=== PATIENT | male | born 2000 | race Hispanic/Latino ===

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

== ENCOUNTER 2020-11-19 22:05 | Emergency (ER) | payer OTHER, SELFPAY ==
[2020-11-19] MEDS ORDERED: AMOX TR/K CLAV 400MG CHEW TAB PO ONE (23:44)
--- NOTE | 2020-11-19 23:51 | ER ---
Nurse's Notes [facility] Name: Roman Hawkins Age: 20 yrs Sex: Male : 2000 Arrival Date: 11/19/2020 Time: 22:06 Bed 18 Private MD: Diagnosis: Acute tonsillitis Presentation: 11/19 22:17 Chief complaint: Patient states: sore throat started yesterday. Tonsils appear to be dm5 red and swollen. Coronavirus screen: Client denies travel out of the [place] in the last 14 days. shaking with chills, sore throat. Ebola Screen: Patient negative for fever greater than or equal to 101.5 degrees Fahrenheit, and additional compatible Ebola Virus Disease symptoms Patient denies exposure to infectious person. Patient denies travel to an Ebola-affected area in the 21 days before illness onset. No symptoms or risks identified at this time. Initial Sepsis Screen: Does the patient meet any 2 criteria? HR > 90 bpm. No. Patient's initial sepsis screen is negative. Does the patient have a suspected source of infection? Yes: Other: possible strep throat. Risk Assessment: Do you want to hurt yourself or someone else? Patient reports no desire to harm self or others. Onset of symptoms was November 18, 2020. 22:17 Method Of Arrival: Ambulatory dm5 22:17 Acuity: LEE ANN 3 dm5 Historical: - Allergies: 22:20 No Known Allergies; dm5 - Home Meds: 22:20 None [Active]; dm5 - PMHx: 22:20 None; dm5 - PSHx: 22:20 None; dm5 - Immunization history:: Adult Immunizations unknown. - Social history:: Patient/guardian denies using alcohol, Smoking status: unknown. Screenin:35 Abuse screen: Denies threats or abuse. Denies injuries from another. Nutritional rv screening: No deficits noted. Tuberculosis screening: No symptoms or risk factors identified. Fall Risk None identified. Assessment: 23:34 General: Appears comfortable, Behavior is calm, cooperative. Pain: Complains of pain in rv sore throat. Neuro: Level of Consciousness is awake, alert, obeys commands, Oriented to person, place, time, situation. Cardiovascular: Patient's skin is warm and dry. Respiratory: Airway is patent Respiratory effort is even, unlabored, Breath sounds are clear bilaterally. EENT: Throat is reddened. Derm: Skin is intact. Vital Signs: 22:17 BP 139 / 84; Pulse 113; Resp 18; Temp 99.2; Pulse Ox 99% on R/A; Weight 88.45 kg (R); dm5 Height 5 ft. 3 in. (160.02 cm); Pain 7/10; 11/20 00:19 BP 128 / 86; Pulse 96; Resp 16; Temp 98.5; Pulse Ox 99% on R/A; rv 11/19 22:17 Body Mass Index 34.54 (88.45 kg, 160.02 cm) 5 ED Course: 11/19 22:06 Patient arrived in ED. am2 22:19 Triage completed. dm5 23:13 Thierno Ellington RN is Primary Nurse. rv 23:15 Chaz Claros MD is Attending Physician. ma2 23:34 Arm band placed on. rv 23:36 Patient has correct armband on for positive identification. Pulse ox on. NIBP on. rv 23:36 No provider procedures requiring assistance completed. Patient did not have IV access rv during this emergency room visit. Administered Medications: 23:33 CANCELLED (Duplicate Order): Augmentin Suspension (400 mg/5 mL) 10 ml PO once rv 23:34 Drug: Augmentin Chewable Tablet 800 mg Route: PO; rv 11/20 00:19 Follow up: Response: No adverse reaction rv Outcome: 11/19 23:36 Discharged to home ambulatory. rv Condition: good 23:50 Discharge ordered by . nj2 11/20 00:00 Discharge instructions given to patient, Instructed on discharge instructions, follow rv up and referral plans. medication usage, Demonstrated understanding of instructions, follow-up care, medications, Prescriptions given X 1. 00:12 Patient left the ED. rv Signatures: Marie Ugarte, RN RN dm5 Jeannie Blair 2 Chaz Claros MD MD [facility] Thierno Ellington RN RN rv
--- NOTE | 2020-11-19 23:51 | EDPHYS ---
Physician Documentation [facility] Name: Roman Hawkins Age: 20 yrs Sex: Male : 2000 Arrival Date: 11/19/2020 Time: 22:06 Bed 18 Private MD: ED Physician Chaz Claros HPI: 11/19 23:48 This 20 yrs old Male presents to ER via Ambulatory with complaints of Sore ma2 Throat, Difficulty Swallowing, chills. 23:48 The patient presents with sore throat. Onset: The symptoms/episode began/occurred ma2 gradually, 2 day(s) ago. Severity of symptoms: At their worst the symptoms were mild, in the emergency department the symptoms are unchanged. Associated signs and symptoms: Pertinent negatives chills, earache, headache, nausea. The patient has not experienced similar symptoms in the past. Historical: - Allergies: 22:20 No Known Allergies; dm5 - Home Meds: 22:20 None [Active]; dm5 - PMHx: 22:20 None; dm5 - PSHx: 22:20 None; dm5 - Immunization history:: Adult Immunizations unknown. - Social history:: Patient/guardian denies using alcohol, Smoking status: unknown. ROS: 23:48 Constitutional: Negative for fever, chills, and weight loss. ma2 23:48 All other systems are negative. 23:48 Eyes: Negative for injury, pain, redness, and discharge, ENT: Negative for injury, ma2 pain, and discharge, Neck: Negative for injury, pain, and swelling. Exam: 23:48 Constitutional: This is a well developed, well nourished patient who is awake, alert, ma2 and in no acute distress. Head/Face: Normocephalic, atraumatic. 23:48 Eyes: Pupils equal round and reactive to light, extra-ocular motions intact. Lids and ma2 lashes normal. Conjunctiva and sclera are non-icteric and not injected. Cornea within normal limits. Periorbital areas with no swelling, redness, or edema. ENT: has bilateral tonsellitits.. Nares patent. No nasal discharge, no septal abnormalities noted. Tympanic membranes are normal and external auditory canals are clear. Oropharynx with no redness, swelling, or masses, exudates, or evidence of obstruction, uvula midline. Mucous membranes moist. Neck: Trachea midline, no thyromegaly or masses palpated, and no cervical lymphadenopathy. Supple, full range of motion without nuchal rigidity, or vertebral point tenderness. No Meningismus. Chest/axilla: Normal chest wall appearance and motion. Nontender with no deformity. No lesions are appreciated. Back: No spinal tenderness. No costovertebral tenderness. Full range of motion. Skin: Warm, dry with normal turgor. Normal color with no rashes, no lesions, and no evidence of cellulitis. MS/ Extremity: Pulses equal, no cyanosis. Neurovascular intact. Full, normal range of motion. Neuro: Awake and alert, GCS 15, oriented to person, place, time, and situation. Cranial nerves II-XII grossly intact. Motor strength 5/5 in all extremities. Sensory grossly intact. Cerebellar exam normal. Normal gait. Vital Signs: 22:17 BP 139 / 84; Pulse 113; Resp 18; Temp 99.2; Pulse Ox 99% on R/A; Weight 88.45 kg (R); dm5 Height 5 ft. 3 in. (160.02 cm); Pain 7/10; 11/20 00:19 BP 128 / 86; Pulse 96; Resp 16; Temp 98.5; Pulse Ox 99% on R/A; rv 11/19 22:17 Body Mass Index 34.54 (88.45 kg, 160.02 cm) dm5 MDM: 11/19 23:15 Patient medically screened. ma2 23:48 Differential diagnosis: gastroesophageal reflux disease, tonsillitis, upper respiratory ma2 infection, viral syndrome. Data reviewed: vital signs, nurses notes. Counseling: I had a detailed discussion with the patient and/or guardian regarding: the historical points, exam findings, and any diagnostic results supporting the discharge/admit diagnosis, the presence of at least one elevated blood pressure reading (>120/80) during this emergency department visit, the need for outpatient follow up. Response to treatment: the patient's symptoms have markedly improved after treatment. Administered Medications: 23:33 CANCELLED (Duplicate Order): Augmentin Suspension (400 mg/5 mL) 10 ml PO once rv 23:34 Drug: Augmentin Chewable Tablet 800 mg Route: PO; rv 11/20 00:19 Follow up: Response: No adverse reaction rv Disposition: 11/19/20 23:50 Discharged to Home. Impression: Acute tonsillitis. - Condition is Stable. - Discharge Instructions: Tonsillitis. - Prescriptions for Augmentin ES- 600 600-42.9 mg/5 mL Oral Suspension for Reconstitution - take 7.2 milliliter by ORAL route every 12 hours for 10 days Max = 875mg/dose; 150 milliliter. - Medication Reconciliation Form, Thank You Letter, Antibiotic Education, Prescription Opioid Use form. - Follow up: Private Physician; When: Tomorrow; Reason: Continuance of care. Signatures: Marie Ugarte, RN RN dm5 Chaz Claros MD MD ma2 Thierno Ellington RN RN rv Corrections: (The following items were deleted from the chart) 11/19 23:33 23:27 Augmentin Suspension (400 mg/5 mL) 10 ml PO once ordered. ma2 rv 11/20 00:12 11/19 23:50 11/19/2020 23:50 Discharged to Home. Impression: Acute tonsillitis. rv Condition is Stable. Prescriptions for Augmentin ES-600 600-42.9 mg/5 mL Oral Suspension for Reconstitution - take 7.2 milliliter by ORAL route every 12 hours for 10 days Max = 875mg/dose; 150 milliliter. and Forms are Medication Reconciliation Form, Thank You Letter, Antibiotic Education, Prescription Opioid Use. Follow up: Private Physician; When: Tomorrow; Reason: Continuance of care. ma2
[2020-11-21 03:49] VITALS: BP 139/84; TEMP 99.2; O2SAT 99
== END 2020-11-20 00:12 | disposition home or self-care (01) ==
LOC: ER 22:05
DX: J03.90 Acute tonsillitis, unspecified (principal)
CPT/HCPCS: 99283

== ENCOUNTER 2020-12-14 00:47 | Emergency (ER) | payer SELFPAY ==
--- NOTE | 2020-12-14 01:35 | ER ---
Nurse's Notes [facility] Name: Roman Hawkins Age: 20 yrs Sex: Male : 2000 Arrival Date: 12/14/2020 Time: 00:48 Bed 13 Private MD: Diagnosis: Dysuria Presentation: 12/14 01:23 Chief complaint: Patient states: i have urinary frequency since 2 weeks ago and I am sg concern about STD. Coronavirus screen: Client denies travel out of the [place] in the last 14 days. At this time, the client does not indicate any symptoms associated with coronavirus-19. Ebola Screen: No symptoms or risks identified at this time. Initial Sepsis Screen: Does the patient meet any 2 criteria? No. Patient's initial sepsis screen is negative. Does the patient have a suspected source of infection? No. Patient's initial sepsis screen is negative. Risk Assessment: Do you want to hurt yourself or someone else? Patient reports no desire to harm self or others. Onset of symptoms was November 2020. 01:23 Method Of Arrival: Ambulatory sg 01:23 Acuity: LEE ANN 4 sg Triage Assessment: :26 General: Appears in no apparent distress. comfortable, Behavior is calm, cooperative. sg Pain: Denies pain. EENT: No deficits noted. Neuro: Level of Consciousness is awake, alert, obeys commands, Oriented to person, place, time, situation. Cardiovascular: Capillary refill < 3 seconds Patient's skin is warm and dry. Respiratory: Airway is patent Respiratory effort is even, unlabored, Respiratory pattern is regular, symmetrical. GI: No signs and/or symptoms were reported involving the gastrointestinal system. : Reports urinary frequency. Derm: Skin is intact, is healthy with good turgor, Skin is pink, warm \T\ dry. normal. Musculoskeletal: Circulation, motion, and sensation intact. Capillary refill < 3 seconds. Historical: - Allergies: : No Known Allergies; sg - Home Meds: None [Active]; sg - PMHx: : None; sg - PSHx: : None; sg - Immunization history:: Flu vaccine is not up to date. - Social history:: Smoking status: Patient denies any tobacco usage or history of. Patient/guardian denies using alcohol, street drugs, IV drugs. - Family history:: not pertinent. Screenin:27 Abuse screen: Denies threats or abuse. Denies injuries from another. Nutritional sg screening: No deficits noted. Tuberculosis screening: No symptoms or risk factors identified. Fall Risk No IV (0 pts). Assessment: : General: see triage note. sg Vital Signs: 01:23 BP 135 / 91; Pulse 89; Resp 18; Temp 98.3; Pulse Ox 100% on R/A; Weight 88.45 kg; sg Height 5 ft. 3 in. (160.02 cm); Pain 0/10; 01:23 Body Mass Index 34.54 (88.45 kg, 160.02 cm) sg ED Course: 00:48 Patient arrived in ED. ag3 01:18 Jeramie Gracia, DAISHA is Primary Nurse. mg2 01:21 Chano Rock MD is Attending Physician. [facility] 01:25 Triage completed. sg 01:26 Arm band placed on. sg 01:27 Patient has correct armband on for positive identification. sg 01:27 No provider procedures requiring assistance completed. Patient did not have IV access sg during this emergency room visit. Administered Medications: 01:52 Drug: Zithromax 1 grams Route: PO; mg2 01:53 Follow up: Response: No adverse reaction; Medication administered at discharge. mg2 01:52 Drug: Rocephin (cefTRIAXone) 500 mg Route: IM; Site: right gluteus; mg2 01:52 Follow up: Response: No adverse reaction; Medication administered at discharge. mg2 01:52 Drug: Doxycycline 200 mg Route: PO; mg2 01:53 Follow up: Response: No adverse reaction; Medication administered at discharge. mg2 Outcome: 01:35 Discharge ordered by . brooks 01:53 Discharged to home ambulatory. mg2 01:53 Condition: stable 01:53 Discharge instructions given to patient, Instructed on discharge instructions, follow up and referral plans. Demonstrated understanding of instructions, follow-up care, medications, Prescriptions given X 1. 01:53 Patient left the ED. mg2 Signatures: Aly Ayala, RN Chano Baez MD MD cha Gardose, Michele, RN RN mg2 Haydee Og ag3
--- NOTE | 2020-12-14 01:35 | EDPHYS ---
Physician Documentation [facility] Name: Roman Hawkins Age: 20 yrs Sex: Male : 2000 Arrival Date: 12/14/2020 Time: 00:48 Bed 13 Private MD: ED Physician Chano Rock HPI: 12/14 01:31 This 20 yrs old Male presents to ER via Ambulatory with complaints of Urinary brooks Frequency. 01:31 The patient presents with urinary symptoms, dysuria. Onset: The symptoms/episode brooks began/occurred 2 day(s) ago. Modifying factors: The symptoms are alleviated by nothing, the symptoms are aggravated by urinating. Associated signs and symptoms: The patient has no apparent associated signs or symptoms. Severity of symptoms: At their worst the symptoms were mild, moderate, in the emergency department the symptoms are unchanged. The patient has not experienced similar symptoms in the past. Historical: - Allergies: : No Known Allergies; sg - Home Meds: : None [Active]; sg - PMHx: : None; sg - PSHx: :26 None; sg - Immunization history:: Flu vaccine is not up to date. - Social history:: Smoking status: Patient denies any tobacco usage or history of. Patient/guardian denies using alcohol, street drugs, IV drugs. - Family history:: not pertinent. ROS: 01:31 Constitutional: Negative for fever, chills, and weight loss, Eyes: Negative for injury, brooks pain, redness, and discharge, ENT: Negative for injury, pain, and discharge, Neck: Negative for injury, pain, and swelling, Cardiovascular: Negative for chest pain, palpitations, and edema, Respiratory: Negative for shortness of breath, cough, wheezing, and pleuritic chest pain, Abdomen/GI: Negative for abdominal pain, nausea, vomiting, diarrhea, and constipation, Back: Negative for injury and pain, MS/Extremity: Negative for injury and deformity, Skin: Negative for injury, rash, and discoloration, Neuro: Negative for headache, weakness, numbness, tingling, and seizure, Psych: Negative for depression, anxiety, suicide ideation, homicidal ideation, and hallucinations, Allergy/Immunology: Negative for hives, rash, and allergies, Endocrine: Negative for neck swelling, polydipsia, polyuria, polyphagia, and marked weight changes, Hematologic/Lymphatic: Negative for swollen nodes, abnormal bleeding, and unusual bruising. :31 : Positive for urinary symptoms, small amounts. Exam: :31 Constitutional: This is a well developed, well nourished patient who is awake, alert, brooks and in no acute distress. Head/Face: Normocephalic, atraumatic. Eyes: Pupils equal round and reactive to light, extra-ocular motions intact. Lids and lashes normal. Conjunctiva and sclera are non-icteric and not injected. Cornea within normal limits. Periorbital areas with no swelling, redness, or edema. ENT: Nares patent. No nasal discharge, no septal abnormalities noted. Tympanic membranes are normal and external auditory canals are clear. Oropharynx with no redness, swelling, or masses, exudates, or evidence of obstruction, uvula midline. Mucous membranes moist. Neck: Trachea midline, no thyromegaly or masses palpated, and no cervical lymphadenopathy. Supple, full range of motion without nuchal rigidity, or vertebral point tenderness. No Meningismus. Chest/axilla: Normal chest wall appearance and motion. Nontender with no deformity. No lesions are appreciated. Cardiovascular: Regular rate and rhythm with a normal S1 and S2. No gallops, murmurs, or rubs. Normal PMI, no JVD. No pulse deficits. Respiratory: Lungs have equal breath sounds bilaterally, clear to auscultation and percussion. No rales, rhonchi or wheezes noted. No increased work of breathing, no retractions or nasal flaring. Abdomen/GI: Soft, non-tender, with normal bowel sounds. No distension or tympany. No guarding or rebound. No evidence of tenderness throughout. Back: No spinal tenderness. No costovertebral tenderness. Full range of motion. Skin: Warm, dry with normal turgor. Normal color with no rashes, no lesions, and no evidence of cellulitis. MS/ Extremity: Pulses equal, no cyanosis. Neurovascular intact. Full, normal range of motion. Neuro: Awake and alert, GCS 15, oriented to person, place, time, and situation. Cranial nerves II-XII grossly intact. Motor strength 5/5 in all extremities. Sensory grossly intact. Cerebellar exam normal. Normal gait. Psych: Awake, alert, with orientation to person, place and time. Behavior, mood, and affect are within normal limits. 01:31 : CVA tenderness, is absent, Male external genitalia: normal, Bladder: is normal, Sexual behavior: the patient is sexually active, and reports a single partner. Vital Signs: 01: BP 135 / 91; Pulse 89; Resp 18; Temp 98.3; Pulse Ox 100% on R/A; Weight 88.45 kg; sg Height 5 ft. 3 in. (160.02 cm); Pain 0/10; :23 Body Mass Index 34.54 (88.45 kg, 160.02 cm) sg MDM: 01:22 Patient medically screened. [facility] 01:31 Differential diagnosis: UTI, urinary retention, prostatitis, urethritis. Data reviewed: [facility] vital signs, nurses notes, lab test result(s), urinalysis. 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 Test interpretation: by ED physician or midlevel provider:. Counseling: I had a detailed discussion with the patient and/or guardian regarding: the historical points, exam findings, and any diagnostic results supporting the discharge/admit diagnosis, lab results. 12/14 01:30 Order name: Urine Culture [facility] 12/14 01:38 Order name: Urine Dipstick--Ancillary (enter results) tt3 12/14 01:30 Order name: Urine Dipstick-Ancillary (obtain specimen); Complete Time: 01:35 [facility] Administered Medications: 01:52 Drug: Zithromax 1 grams Route: PO; mg2 01:53 Follow up: Response: No adverse reaction; Medication administered at discharge. mg2 01:52 Drug: Rocephin (cefTRIAXone) 500 mg Route: IM; Site: right gluteus; mg2 01:52 Follow up: Response: No adverse reaction; Medication administered at discharge. mg2 01:52 Drug: Doxycycline 200 mg Route: PO; mg2 01:53 Follow up: Response: No adverse reaction; Medication administered at discharge. mg2 Disposition: 12/14/20 01:35 Discharged to Home. Impression: Dysuria. - Condition is Stable. - Discharge Instructions: Dysuria, Sexually Transmitted Disease, [id number]. - Prescriptions for Doxycycline Hyclate 100 mg Oral Tablet - take 1 tablet by ORAL route every 12 hours; 20 tablet. - Medication Reconciliation Form, Thank You Letter, Antibiotic Education, Prescription Opioid Use form. - Follow up: Private Physician; When: 2 - 3 days; Reason: Recheck today's complaints, Re-evaluation by your physician. - Problem is new. - Symptoms have improved. Signatures: Dispatcher [employer] EDMS Aly Ayala RN RN Chano Roman MD MD cha Gardose, Michele, RN RN mg2 Corrections: (The following items were deleted from the chart) 01:53 01:35 12/14/2020 01:35 Discharged to Home. Impression: Dysuria. Condition is Stable. mg2 Forms are Medication Reconciliation Form, Thank You Letter, Antibiotic Education, Prescription Opioid Use. Follow up: Private Physician; When: 2 - 3 days; Reason: Recheck today's complaints, Re-evaluation by your physician. Problem is new. Symptoms have improved. brooks
[2020-12-14 01:43] LABS: Urine Blood NEGATIVE (NEG); Urine Glucose NEGATIVE (NEG); Urine Protein NEGATIVE (NEG); Urine Specific Gravity 1.025 (1.005-1.030)
[2020-12-14] MEDS ORDERED: AZITHROMYCIN 250 MG TAB ONE (01:53)
[2020-12-14] MEDS ORDERED: DOXYCYCLINE 100 MG CAP PO ONE (01:53)
[2020-12-14] MEDS ORDERED: WATER FOR INJ,STERILE 10 ML ONE (01:53)
[2020-12-14] MEDS ORDERED: CEFTRIAXONE 1000 MG/VIAL ONE (01:53)
[2020-12-14] MEDS ORDERED: CEFTRIAXONE 500 MG/VIAL ONE (01:55)
[2020-12-14 01:58] VITALS: BP 135/91; TEMP 98.3; O2SAT 100
== END 2020-12-14 01:53 | disposition home or self-care (01) ==
LOC: ER 00:47
DX: R30.0 Dysuria (principal)
CPT/HCPCS: 81003; 87086; 87088; 96372; 99283; J0696

== ENCOUNTER 2021-11-12 15:52 | Emergency (ER) | payer OTHER, SELFPAY ==
[2021-11-12] MEDS ORDERED: PEN G BENZ LA 1.2MU/2ML SYRINGE IM ONE (17:46)
[2021-11-12] MEDS ORDERED: dexAMETHasone 10 MG/ML VIAL ONE (17:47)
--- NOTE | 2021-11-12 17:49 | ER ---
Nurse's Notes [facility] Name: Roman Hawkins Age: 21 yrs Sex: Male : 2000 Arrival Date: 11/12/2021 Time: 15:55 Bed 11 Private MD: Diagnosis: Acute tonsillitis, unspecified Presentation: 11/12 16:11 Chief complaint: Patient states: throat pain x 2 days, no fever. Coronavirus screen: [facility] Vaccine status: Patient reports receiving the 2nd dose of the covid vaccine. Ebola Screen: No symptoms or risks identified at this time. Initial Sepsis Screen: Does the patient meet any 2 criteria? No. Patient's initial sepsis screen is negative. Does the patient have a suspected source of infection? No. Patient's initial sepsis screen is negative. Risk Assessment: Do you want to hurt yourself or someone else? Patient reports no desire to harm self or others. Onset of symptoms was November 10, 2021. 16:11 Method Of Arrival: Ambulatory [facility] 16:11 Acuity: LEE ANN 4 [facility] Triage Assessment: 16:15 General: Appears in no apparent distress. uncomfortable, Behavior is calm, cooperative, [facility] appropriate for age. Pain: Complains of pain in left aspect of posterior pharynx and right aspect of posterior pharynx Pain does not radiate. Quality of pain is described as dull, sharp, Pain began 2-3 days ago. Is continuous, Aggravated by eating, drinking. EENT: Throat has patchy exudate has enlarged tonsils bilaterally. Historical: - Allergies: 16:14 No Known Allergies; [facility] - Home Meds: 16:14 None [Active]; [facility] - PMHx: 16:14 None; [facility] - Immunization history:: Adult Immunizations up to date. - Social history:: Smoking status: Patient denies any tobacco usage or history of. Screenin:42 Abuse screen: Denies threats or abuse. Denies injuries from another. Nutritional ww screening: No deficits noted. Tuberculosis screening: No symptoms or risk factors identified. Fall Risk None identified. Assessment: 17:42 General: Appears in no apparent distress. well developed, well nourished, Behavior is ww calm, cooperative, appropriate for age. Pain: Complains of pain in mouth. Neuro: Level of Consciousness is awake, alert, obeys commands, Oriented to person, place, time, situation, Moves all extremities. Speech is normal. Cardiovascular: No deficits noted. Denies chest pain, shortness of breath, Capillary refill < 3 seconds. Respiratory: No deficits noted. Airway is patent Trachea Respiratory effort is even, unlabored, Respiratory pattern is regular, symmetrical. GI: No deficits noted. No signs and/or symptoms were reported involving the gastrointestinal system. : No deficits noted. No signs and/or symptoms were reported regarding the genitourinary system. EENT: Throat is reddened has enlarged tonsils. Derm: No deficits noted. No signs and/or symptoms reported regarding the dermatologic system. Musculoskeletal: No deficits noted. No signs and/or symptoms reported regarding the musculoskeletal system. Circulation, motion, and sensation intact. Capillary refill < 3 seconds, Range of motion: intact in all extremities. Vital Signs: 16:11 BP 149 / 76; Pulse 111; Resp 18; Temp 98.9(T); Pulse Ox 98% ; Weight 90.72 kg; Height 5 6 ft. 4 in. (162.56 cm); Pain 9/10; 17:55 BP 131 / 75; Pulse 108; Resp 20; Pulse Ox 98% on R/A; ww 16:11 Body Mass Index 34.33 (90.72 kg, 162.56 cm) [facility] Pat Coma Score: 17:42 Eye Response: spontaneous(4). Verbal Response: oriented(5). Motor Response: obeys commands(6). Total: 15. ED Course: 15:55 Patient arrived in ED. am2 16:14 Triage completed. [facility] 16:16 Arm band placed on right wrist. [facility] 17:24 Steve Colindres PA is PHCP. [facility] 17:25 Mac Davis MD is Attending Physician. [facility] 17:41 Susanna Ramos, RN is Primary Nurse. ww 17:42 Patient has correct armband on for positive identification. Bed in low position. Call ww light in reach. Side rails up X 1. 17:42 Strep Sent. 17:48 Jelly Hernandez MD is Referral Physician. [facility] 18:28 Patient did not have IV access during this emergency room visit. 18:28 No provider procedures requiring assistance completed. Administered Medications: 17:54 Drug: Bicillin L-A (penicillin G Benzathine) 1.2 million units Route: IM; Site: right ww gluteus; 17:54 Drug: Decadron (dexamethasone) 10 mg Route: IM; Site: right gluteus; ww Outcome: 17:48 Discharge ordered by MD. beverly 18:27 Discharged to home ambulatory. ww 18:27 Condition: stable 18:27 Discharge instructions given to patient, Instructed on discharge instructions, follow up and referral plans. safety practices, Demonstrated understanding of instructions, follow-up care. 18:28 Patient left the ED. ww Signatures: Steve Colindres PA PA jmm Moreno, Amanda am2 Hastedt, Jennifer RN RN jh6 Susanna Ramos RN RN ww
--- NOTE | 2021-11-12 17:49 | EDPHYS ---
Physician Documentation [facility] Name: Roman Hawkins Age: 21 yrs Sex: Male : 2000 Arrival Date: 11/12/2021 Time: 15:55 Bed 11 Private MD: ED Physician Mac Davis HPI: 11/12 17:45 This 21 yrs old Male presents to ER via Ambulatory with complaints of Sore jmm Throat. 17:45 The patient presents with sore throat. Onset: The symptoms/episode began/occurred jmm gradually, 1 day(s) ago. Modifying factors: The symptoms are alleviated by nothing, the symptoms are aggravated by nothing. Associated signs and symptoms: Pertinent positives: chills. The patient has experienced similar episodes in the past. Historical: - Allergies: 16:14 No Known Allergies; 6 - Home Meds: 16:14 None [Active]; [facility] - PMHx: 16:14 None; [facility] - Immunization history:: Adult Immunizations up to date. - Social history:: Smoking status: Patient denies any tobacco usage or history of. ROS: 17:45 Constitutional: Negative for fever, chills, and weight loss, Eyes: Negative for injury, jmm pain, redness, and discharge. 17:45 Respiratory: Negative for shortness of breath, cough, wheezing, and pleuritic chest pain, Abdomen/GI: Negative for abdominal pain, nausea, vomiting, diarrhea, and constipation, Back: Negative for injury and pain, Skin: Negative for injury, rash, and discoloration, Neuro: Negative for headache, weakness, numbness, tingling, and seizure. 17:45 ENT: Positive for sore throat. 17:45 All other systems are negative. Exam: 17:45 Constitutional: This is a well developed, well nourished patient who is awake, alert, jmm and in no acute distress. Head/Face: atraumatic. Eyes: EOMI, no conjunctival erythema appreciated ENT: Moist Mucus Membranes Neck: Trachea midline, Supple 17:45 Cardiovascular: Regular rate and rhythm. No edema appreciated Respiratory: Normal respirations, no respiratory distress appreciated Abdomen/GI: Non distended, soft Back: Normal ROM Skin: General appearance color normal MS/ Extremity: Moves all extremities, no obvious deformities appreciated, no edema noted to the lower extremities Neuro: Awake and alert, normal gait Psych: Behavior is normal, Mood is normal, Patient is cooperative and pleasant 17:45 ENT: Posterior pharynx: Tonsils: enlarged on the right, enlarged on the left, bilaterally enlarged, with erythema, with exudate, Uvula: midline, erythema, that is moderate. Vital Signs: 16:11 BP 149 / 76; Pulse 111; Resp 18; Temp 98.9(T); Pulse Ox 98% ; Weight 90.72 kg; Height 5 jh6 ft. 4 in. (162.56 cm); Pain 9/10; 17:55 BP 131 / 75; Pulse 108; Resp 20; Pulse Ox 98% on R/A; ww 16:11 Body Mass Index 34.33 (90.72 kg, 162.56 cm) jh6 Pat Coma Score: 17:42 Eye Response: spontaneous(4). Verbal Response: oriented(5). Motor Response: obeys ww commands(6). Total: 15. MDM: 17:26 Patient medically screened. [facility] 17:47 Data reviewed: vital signs, nurses notes. Counseling: I had a detailed discussion with [facility] the patient and/or guardian regarding: the historical points, exam findings, and any diagnostic results supporting the discharge/admit diagnosis, the need for outpatient follow up, to return to the emergency department if symptoms worsen or persist or if there are any questions or concerns that arise at home. 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 . 11/12 17:27 Order name: Strep; Complete Time: 13:18 [facility] Administered Medications: 17:54 Drug: Bicillin L-A (penicillin G Benzathine) 1.2 million units Route: IM; Site: right ww gluteus; 17:54 Drug: Decadron (dexamethasone) 10 mg Route: IM; Site: right gluteus; ww Disposition: 19:00 Co-signature as Attending Physician, Mac Davis MD I agree with the assessment and rn plan of care. Attestation: The patient's history, exam findings, diagnostics, and a summary of any interventions or procedures was reviewed in detail with Steve VAZQUEZ. Disposition Summary: 11/12/21 17:48 Discharge Ordered Location: Home [facility] Condition: Stable [facility] Diagnosis - Acute tonsillitis, unspecified [facility] Followup: [facility] - With: Private Physician - When: 2 - 3 days - Reason: Recheck today's complaints, Continuance of care, Re-evaluation by your physician Followup: [facility] - With: Jelly Hernandez MD - When: 2 - 3 days - Reason: Recheck today's complaints, Continuance of care, Re-evaluation by your physician Forms: - Medication Reconciliation Form [facility] - Thank You Letter [facility] - Antibiotic Education [facility] - Prescription Opioid Use preet Signatures: Dispatcher [employer] EDSteve Means PA PA jmm Nieto, Roman, MD MD rn Kathleen Jack RN RN jh6 Susanna Ramos, RN RN ww
[2021-11-12 18:53] VITALS: TEMP 98.9; O2SAT 98
[2021-11-12 18:54] VITALS: BP 131/75
== END 2021-11-12 18:28 | disposition home or self-care (01) ==
LOC: ER 15:52
DX: J03.90 Acute tonsillitis, unspecified (principal)
CPT/HCPCS: 87081; 96372; 99283; J0561; J1100

== ENCOUNTER 2021-11-25 20:46 | Emergency (ER) | payer SELFPAY ==
--- NOTE | 2021-11-26 01:34 | EDPHYS ---
Physician Documentation [facility] Name: Rmoan Hawkins Age: 21 yrs Sex: Male : 2000 Arrival Date: 11/25/2021 Time: 20:47 Bed Waiting Private MD: ED Physician Shola Gentile HPI: 11/26 01:28 This 21 yrs old Male presents to ER via Ambulatory with complaints of Covid cp Test. 01:29 The patient presents with sore throat. The patient describes throat pain as dry. Onset: cp The symptoms/episode began/occurred yesterday. Associated signs and symptoms: Pertinent negatives cough, dysphagia, earache, fever, headache. Patient requesting test for COVID-19. Reports family member tested positive. Historical: - Allergies: 11/25 21:11 No Known Allergies; ll1 - PMHx: 21:11 None; ll1 - PSHx: 21:11 None; ll1 - Immunization history:: Client reports receiving the 1st dose of the Covid vaccine, Flu vaccine status is unknown. - Social history:: Smoking status: Patient reports the use of cigarette tobacco products, denies chronic smoking, but will smoke occasionally. ROS: 11/26 01:30 Eyes: Negative for injury, pain, redness, and discharge. cp Constitutional: Negative for body aches, chills, fever, poor PO intake. ENT: Positive for sore throat, Negative for drainage from ear(s), ear pain, difficulty swallowing, difficulty handling secretions. Respiratory: Negative for cough, shortness of breath, wheezing. Abdomen/GI: Negative for abdominal pain, nausea, vomiting, and diarrhea. Neuro: Negative for headache. All other systems are negative. Exam: 01:30 Head/Face: Normocephalic, atraumatic. cp 01:30 Constitutional: The patient appears in no acute distress, alert, awake, non-toxic, well developed, well nourished. 01:30 Eyes: Periorbital structures: appear normal, Conjunctiva: normal, no exudate, no injection, Sclera: no appreciated abnormality, Lids and lashes: appear normal, bilaterally. 01:30 ENT: External ear(s): are unremarkable, Nose: is normal, Mouth: Lips: moist, Oral mucosa: pink and intact, moist, Posterior pharynx: Airway: no evidence of obstruction, patent, Tonsils: are normal in appearance, erythema, is not appreciated, exudate, is not appreciated. 01:30 Neck: Lymph nodes: no appreciated lymphadenopathy. 01:30 Chest/axilla: Inspection: normal. 01:30 Cardiovascular: Rate: normal. 01:30 Respiratory: the patient does not display signs of respiratory distress, Respirations: normal, no use of accessory muscles, no retractions, labored breathing, is not present. Vital Signs: 11/25 21:10 BP 129 / 94; Pulse 89; Resp 17; Temp 98.8; Pulse Ox 100% ; Weight 90.72 kg; Height 5 ll1 ft. 4 in. (162.56 cm); Pain 0/10; 21:10 Body Mass Index 34.33 (90.72 kg, 162.56 cm) ll1 MDM: 11/26 01:32 Data reviewed: vital signs, nurses notes, lab test result(s), and as a result, I will cp discharge patient. 01:33 Patient medically screened. cp 11/26 00:07 Order name: SARS-COV-2 RT PCR; Complete Time: 01:22 EDMS Administered Medications: No medications were administered Disposition: 03:04 Co-signature as Attending Physician, Shola Gentile MD. pkl Disposition Summary: 11/26/21 01:33 Discharge Ordered Location: Home cp Problem: new cp Symptoms: have improved cp Condition: Stable cp Diagnosis - Encounter for screening, unspecified - COVID-19 test cp Followup: cp - With: Private Physician - When: 2 - 3 days - Reason: Worsening of condition Discharge Instructions: - Discharge Summary Sheet cp - COVID-19 cp - COVID-19: What Your Test Results Mean - CDC cp - COVID-19 Frequently Asked Questions cp Forms: - Medication Reconciliation Form cp - Thank You Letter cp - Antibiotic Education cp - Prescription Opioid Use cp Signatures: Dispatcher [employer] EDMS Shola Gentile MD MD pkl Chano Mcgrath PA PA cp Lewis, Lynsay, RN RN ll1
--- NOTE | 2021-11-26 01:34 | ER ---
Nurse's Notes [facility] Name: Roman Hawkins Age: 21 yrs Sex: Male : 2000 Arrival Date: 11/25/2021 Time: 20:47 Bed Waiting Private MD: Diagnosis: Encounter for screening, [id number] test Presentation: 11/25 21:10 Chief complaint: Patient states: Slight sore throat for 2 days. Was exposed to covid. ll1 No fever. Coronavirus screen: Vaccine status: Patient reports receiving the 1st dose of the Covid vaccine. Client denies travel out of the [place] in the last 14 days. sore throat, Client presents with at least one sign or symptom that may indicate coronavirus-19. Standard/surgical mask placed on the client. Ebola Screen: Patient denies travel to an Ebola-affected area in the 21 days before illness onset. Initial Sepsis Screen: Does the patient meet any 2 criteria? No. Patient's initial sepsis screen is negative. Does the patient have a suspected source of infection? Yes: Other: sore throat. Risk Assessment: Do you want to hurt yourself or someone else? Patient reports no desire to harm self or others. Onset of symptoms was November 24, 2021. 21:10 Method Of Arrival: Ambulatory ll1 21:10 Acuity: LEE ANN 5 ll1 Historical: - Allergies: 21:11 No Known Allergies; ll1 - PMHx: 21:11 None; ll1 - PSHx: 21:11 None; ll1 - Immunization history:: Client reports receiving the 1st dose of the Covid vaccine, Flu vaccine status is unknown. - Social history:: Smoking status: Patient reports the use of cigarette tobacco products, denies chronic smoking, but will smoke occasionally. Screenin/28 01:45 Abuse screen: Denies threats or abuse. Nutritional screening: No deficits noted. bb Tuberculosis screening: No symptoms or risk factors identified. Fall Risk None identified. Assessment: 01:45 Reassessment: Patient is alert, oriented x 3, equal unlabored respirations, skin bb warm/dry/pink. pt seen by this RN at discharge pt verbalized understanding of and agrees to plan of care discharge instructions given pt ambulated with steady gait to exit. Vital Signs: 11/25 21:10 BP 129 / 94; Pulse 89; Resp 17; Temp 98.8; Pulse Ox 100% ; Weight 90.72 kg; Height 5 ll1 ft. 4 in. (162.56 cm); Pain 0/10; 21:10 Body Mass Index 34.33 (90.72 kg, 162.56 cm) ll1 ED Course: 20:47 Patient arrived in ED. mr 21:11 Triage completed. ll1 21:12 Arm band placed on. ll1 11/26 00:36 SARS-COV-2 RT PCR Sent. bb 00:43 Chano Mcgrath PA is PHCP. cp 00:43 Shola Gentile MD is Attending Physician. cp 01:45 Patient has correct armband on for positive identification. bb 01:45 No provider procedures requiring assistance completed. Patient did not have IV access bb during this emergency room visit. Administered Medications: No medications were administered Outcome: 01:33 Discharge ordered by MD. cp 01:45 Discharged to home ambulatory. bb 01:45 Condition: stable 01:45 Discharge instructions given to patient, Instructed on discharge instructions, follow up and referral plans. Demonstrated understanding of instructions, follow-up care. 01:47 Patient left the ED. bb Signatures: Jacqueline Olivia mr DemarcoAleja RN RN bb Chano Mcgrath PA PA cp Lewis, Lynsay, RN RN ll1
[2021-11-26 01:59] VITALS: BP 129/94; TEMP 98.8; O2SAT 100
== END 2021-11-26 01:47 | disposition home or self-care (01) ==
LOC: ER 20:46
DX: J02.9 Acute pharyngitis, unspecified (principal); Z20.822 Contact with and (suspected) exposure to COVID-19
CPT/HCPCS: 99283; U0003

== ENCOUNTER 2022-03-17 16:36 | Emergency (ER) | payer SELFPAY ==
--- NOTE | 2022-03-17 18:26 | ER ---
Nurse's Notes [facility] Name: Roman Hawkins Age: 21 yrs Sex: Male : 2000 Arrival Date: 03/17/2022 Time: 16:38 Bed Waiting Private MD: Diagnosis: Acute streptococcal tonsillitis, unspecified Presentation: 03/17 17:17 Chief complaint: Patient states: Swelling to R tonsils that started Thursday, denies ph fever. Coronavirus screen: Vaccine status: Patient reports being unvaccinated. Ebola Screen: No symptoms or risks identified at this time. Initial Sepsis Screen: Does the patient meet any 2 criteria? No. Patient's initial sepsis screen is negative. Does the patient have a suspected source of infection? No. Patient's initial sepsis screen is negative. Risk Assessment: Do you want to hurt yourself or someone else? Patient reports no desire to harm self or others. Onset of symptoms was March 17, 2022. 17:17 Method Of Arrival: Ambulatory ph 17:17 Acuity: LEE ANN 4 ph Triage Assessment: 17:19 General: Appears in no apparent distress. Behavior is calm, cooperative, appropriate ph for age, Denies fever. Pain: Complains of pain in throat. EENT: Throat is reddened has enlarged tonsils on right. Respiratory: Airway is patent Respiratory effort is even, unlabored. Historical: - PMHx: 17:19 None; ph - Immunization history:: Adult Immunizations unknown. - Social history:: Smoking status: Patient denies any tobacco usage or history of. Screenin:20 Abuse screen: Denies threats or abuse. Denies injuries from another. Nutritional ph screening: No deficits noted. Tuberculosis screening: No symptoms or risk factors identified. Fall Risk None identified. Assessment: 18:40 Reassessment: P:t d/c from lobby. General: SEE TRIAGE ASSESSMENT. ph Vital Signs: 17:17 BP 142 / 95; Pulse 89; Resp 18; Temp 98.0; Pulse Ox 98% on R/A; Weight 86.18 kg; Height ph 5 ft. 3 in. (160.02 cm); 17:17 Body Mass Index 33.66 (86.18 kg, 160.02 cm) ph ED Course: 16:38 Patient arrived in ED. mr 16:59 Chano Mcgrath PA is PHCP. cp 16:59 Alpesh Gamble DO is Attending Physician. cp 17:19 Triage completed. ph 17:19 Arm band placed on Patient placed in waiting room, Patient notified of wait time. Labs ph ordered per protocol. 17:19 Patient has correct armband on for positive identification. ph 18:24 Simran Delaney MD is Referral Physician. cp 18:44 Fabby Brambila, RN is Primary Nurse. ph 18:44 No provider procedures requiring assistance completed. Patient did not have IV access ph during this emergency room visit. Administered Medications: 18:43 Drug: Augmentin (Amoxicillin-Clavulanate) 875 mg Route: PO; ph 18:45 Follow up: Response: Medication administered at discharge. ph Outcome: 18:25 Discharge ordered by MD. cp 18:44 Patient left the ED. ph 18:45 Discharged to home ambulatory. ph 18:45 Condition: good 18:45 Discharge instructions given to patient, Instructed on discharge instructions, follow up and referral plans. medication usage, Demonstrated understanding of instructions, follow-up care, medications, Prescriptions given X 1. Signatures: Jacqueline Olivia mr Fabby Brambila, RN RN ph Chano Mcgrath PA PA cp
--- NOTE | 2022-03-17 18:26 | EDPHYS ---
Physician Documentation [facility] Name: Roman Hawkins Age: 21 yrs Sex: Male : 2000 Arrival Date: 03/17/2022 Time: 16:38 Bed Waiting Private MD: ED Physician Alpesh Gamble HPI: 03/17 17:15 This 21 yrs old Male presents to ER via Ambulatory with complaints of Sore cp Throat. 17:15 The patient presents with sore throat. cp 17:15 Onset: The symptoms/episode began/occurred yesterday. Severity of symptoms: in the emergency department the symptoms are unchanged, despite home interventions. Associated signs and symptoms: Pertinent positives: Sore throat Pertinent negatives cough, dysphagia, earache, fever, flu-like symptoms. Historical: - PMHx: 17:19 None; ph - Immunization history:: Adult Immunizations unknown. - Social history:: Smoking status: Patient denies any tobacco usage or history of. ROS: 17:20 Constitutional: Negative for body aches, chills, fever, poor PO intake. cp 17:20 Eyes: Negative for injury, pain, redness, and discharge. cp 17:20 ENT: Positive for sore throat, Negative for drainage from ear(s), ear pain, difficulty swallowing, difficulty handling secretions. 17:20 Neck: Negative for pain with movement, pain at rest, stiffness. 17:20 Respiratory: Negative for cough, shortness of breath, wheezing. 17:20 Abdomen/GI: Negative for abdominal pain, nausea, vomiting, and diarrhea. 17:20 Skin: Negative for rash. 17:20 All other systems are negative. Exam: 17:25 Constitutional: The patient appears in no acute distress, alert, awake, non-toxic, well cp developed, well nourished. 17:25 Head/Face: Normocephalic, atraumatic. cp 17:25 Eyes: Periorbital structures: appear normal, Conjunctiva: normal, no exudate, no injection, Sclera: no appreciated abnormality, Lids and lashes: appear normal, bilaterally. 17:25 ENT: External ear(s): are unremarkable, Ear canal(s): are normal, clear, TM's: dullness, bilaterally, Nose: is normal, Mouth: Lips: moist, Oral mucosa: moist, Posterior pharynx: Airway: no evidence of obstruction, patent, Tonsils: bilaterally enlarged, with erythema, with exudate, Uvula: midline, erythema, that is moderate. 17:25 Neck: ROM/movement: is normal, is supple, without pain, no range of motions limitations, no meningismus. 17:25 Chest/axilla: Inspection: normal. 17:25 Cardiovascular: Rate: normal. 17:25 Respiratory: the patient does not display signs of respiratory distress, Respirations: normal, no use of accessory muscles, no retractions, labored breathing, is not present, Breath sounds: are clear throughout, no decreased breath sounds, no stridor, no wheezing. 17:25 Skin: no rash present. Vital Signs: 17:17 BP 142 / 95; Pulse 89; Resp 18; Temp 98.0; Pulse Ox 98% on R/A; Weight 86.18 kg; Height ph 5 ft. 3 in. (160.02 cm); 17:17 Body Mass Index 33.66 (86.18 kg, 160.02 cm) ph MDM: 18:25 Patient medically screened. cp 18:25 Data reviewed: vital signs, nurses notes, lab test result(s). cp 18:25 Counseling: I had a detailed discussion with the patient and/or guardian regarding: the cp historical points, exam findings, and any diagnostic results supporting the discharge/admit diagnosis, lab results, to return to the emergency department if symptoms worsen or persist or if there are any questions or concerns that arise at home. ED course: VSS. Patient appears non-toxic. Will discharge to home for continued monitoring. 03/17 17:03 Order name: Strep; Complete Time: 18:23 cp 03/17 18:23 Interpretation: Reviewed. cp Administered Medications: 18:43 Drug: Augmentin (Amoxicillin-Clavulanate) 875 mg Route: PO; ph 18:45 Follow up: Response: Medication administered at discharge. ph Disposition: 21:37 Co-signature as Attending Physician, Alpesh Gamble DO I was immediately available on-site ms3 in the Emergency Department for consultation in the care of the patient.. Disposition Summary: 03/17/22 18:25 Discharge Ordered Location: Home cp Problem: new cp Symptoms: have improved cp Condition: Stable cp Diagnosis - Acute streptococcal tonsillitis, unspecified cp Followup: cp - With: Delaney, Simran, MD - When: 2 - 3 days - Reason: Worsening of condition Discharge Instructions: - Discharge Summary Sheet cp - Tonsillitis cp Forms: - Medication Reconciliation Form cp - Thank You Letter cp - Antibiotic Education cp - Prescription Opioid Use cp Prescriptions: - Augmentin 875-125 mg Oral Tablet - take 1 tablet by ORAL route every 12 hours for 10 days; 20 tablet; Refills: 0, cp Product Selection Permitted Signatures: Dispatcher [employer] Fabby Tejada RN RN ph Ramila, Chano, PA PA cp Alpesh Gamble DO DO ms3 Corrections: (The following items were deleted from the chart) 03/18 18:01 03/17 17:15 Associated signs and symptoms: Pertinent positives: headache, Pertinent cp negatives cough, dysphagia, earache, fever, flu-like symptoms, cp
[2022-03-17] MEDS ORDERED: AMOX/K CLAV 875 MG TAB ONE (18:42)
[2022-03-17 23:24] VITALS: BP 142/95; TEMP 98; O2SAT 98
== END 2022-03-17 18:44 | disposition home or self-care (01) ==
LOC: ER 16:36
DX: J03.00 Acute streptococcal tonsillitis, unspecified (principal)
CPT/HCPCS: 87081; 99283

== ENCOUNTER 2022-10-24 12:36 | Emergency (ER) | payer SELFPAY ==
--- NOTE | 2022-10-24 14:43 | ER ---
Nurse's Notes [facility] Name: Roman Hawkins Age: 22 yrs Sex: Male : 2000 Arrival Date: 10/24/2022 Time: 12:39 Bed IW6 Private MD: Diagnosis: Acute tonsillitis, unspecified Presentation: 10/24 13:27 Chief complaint: Sore throat and cough x 1 week. Coronavirus screen: Client presents hb with at least one sign or symptom that may indicate coronavirus-19. Provider contacted for isolation considerations. Ebola Screen: No symptoms or risks identified at this time. Initial Sepsis Screen: Does the patient meet any 2 criteria? No. Patient's initial sepsis screen is negative. Does the patient have a suspected source of infection? No. Patient's initial sepsis screen is negative. Risk Assessment: Do you want to hurt yourself or someone else? Patient reports no desire to harm self or others. Onset of symptoms was October 17, 2022. 13:27 Method Of Arrival: Ambulatory hb 13:27 Acuity: LEE ANN 4 hb Triage Assessment: 13:29 General: Appears in no apparent distress. Behavior is calm, cooperative. Pain: Pain hb currently is 7 out of 10 on a pain scale. EENT: Reports pain since throat. Neuro: Level of Consciousness is awake, alert, obeys commands, Oriented to person, place, time, situation. Cardiovascular: Patient's skin is warm and dry. Respiratory: Respiratory effort is even, unlabored, Respiratory pattern is regular, symmetrical. Historical: - Allergies: 13:29 No Known Allergies; hb - Immunization history:: Adult Immunizations up to date. - Social history:: Smoking status: Patient denies any tobacco usage or history of. Vital Signs: 13:27 BP 139 / 82; Pulse 94; Resp 18; Temp 98.8(TE); Pulse Ox 98% on R/A; Weight 86.18 kg; hb Height 5 ft. 4 in. (162.56 cm); Pain 7/10; 13:27 Body Mass Index 32.61 (86.18 kg, 162.56 cm) hb ED Course: 12:39 Patient arrived in ED. jj6 13:16 Chano Mcgrath PA is PHCP. cp 13:16 Chano Rock MD is Attending Physician. cp 13:29 Triage completed. hb 13:30 Arm band placed on. hb Administered Medications: No medications were administered Outcome: 14:42 Discharge ordered by MD. cp 14:54 Patient left the ED. hb Signatures: Chano Mcgrath PA PA cp Baxter, Heather, RN RN Kathleen Dewitt jj6
--- NOTE | 2022-10-24 14:43 | EDPHYS ---
Physician Documentation [facility] Name: Roman Hawkins Age: 22 yrs Sex: Male : 2000 Arrival Date: 10/24/2022 Time: 12:39 Bed IW6 Private MD: ED Physician Chano Rock HPI: 10/24 13:40 This 22 yrs old Male presents to ER via Ambulatory with complaints of Sore cp Throat. 13:40 The patient presents with sore throat. Onset: The symptoms/episode began/occurred 1 cp week(s) ago. Severity of symptoms: in the emergency department the symptoms are unchanged, despite home interventions. Associated signs and symptoms: Pertinent positives: cough, Pertinent negatives diarrhea, dysphagia, fever, headache, vomiting. Historical: - Allergies: 13:29 No Known Allergies; hb - Immunization history:: Adult Immunizations up to date. - Social history:: Smoking status: Patient denies any tobacco usage or history of. ROS: 13:45 Constitutional: Negative for body aches, chills, fever, poor PO intake. cp 13:45 Eyes: Negative for injury, pain, redness, and discharge. cp 13:45 ENT: Positive for sore throat, Negative for drainage from ear(s), ear pain, difficulty swallowing, difficulty handling secretions. 13:45 Cardiovascular: Negative for chest pain, palpitations. 13:45 Respiratory: Positive for cough, Negative for shortness of breath, wheezing. 13:45 Abdomen/GI: Negative for abdominal pain, vomiting, diarrhea, constipation. 13:45 Skin: Negative for rash. 13:45 Neuro: Negative for altered mental status, dizziness, headache, weakness. 13:45 All other systems are negative. Exam: 13:55 Constitutional: The patient appears in no acute distress, alert, awake, non-toxic, well cp developed, well nourished. 13:55 Head/Face: Normocephalic, atraumatic. cp 13:55 Eyes: Periorbital structures: appear normal, Conjunctiva: normal, no exudate, no injection, Sclera: no appreciated abnormality, Lids and lashes: appear normal, bilaterally. 13:55 ENT: External ear(s): are unremarkable, Ear canal(s): are normal, clear, TM's: dullness, bilaterally, Nose: is normal, Mouth: Lips: moist, Oral mucosa: moist, Posterior pharynx: Airway: no evidence of obstruction, patent, Tonsils: bilaterally enlarged, with erythema, no exudate, Uvula: midline, erythema, that is moderate, exudate, is not appreciated, Voice: is normal. 13:55 Neck: ROM/movement: is normal, is supple, without pain, no range of motions limitations, no meningismus, Lymph nodes: lymphadenopathy is appreciated, anterior cervical nodes. 13:55 Chest/axilla: Inspection: normal. 13:55 Cardiovascular: Rate: normal, Rhythm: regular. 13:55 Respiratory: the patient does not display signs of respiratory distress, Respirations: normal, no use of accessory muscles, no retractions, labored breathing, is not present, Breath sounds: are clear throughout, no decreased breath sounds, no stridor, no wheezing. 13:55 Abdomen/GI: Exam negative for discomfort, distension, guarding, Inspection: abdomen appears normal. 13:55 Skin: no rash present. Vital Signs: 13:27 BP 139 / 82; Pulse 94; Resp 18; Temp 98.8(TE); Pulse Ox 98% on R/A; Weight 86.18 kg; hb Height 5 ft. 4 in. (162.56 cm); Pain 7/10; 13:27 Body Mass Index 32.61 (86.18 kg, 162.56 cm) hb MDM: 13:33 Patient medically screened. cp 13:50 Differential diagnosis: group A strep tonsillitis, influenza, laryngitis, peritonsillar cp abscess pharyngitis, retropharyngeal abcess. 14:42 Data reviewed: vital signs, nurses notes, lab test result(s). cp 14:42 Counseling: I had a detailed discussion with the patient and/or guardian regarding: the cp historical points, exam findings, and any diagnostic results supporting the discharge/admit diagnosis, lab results, to return to the emergency department if symptoms worsen or persist or if there are any questions or concerns that arise at home. 10/24 13:29 Order name: Strep cp 10/24 14:40 Order name: Throat Culture EDMS Administered Medications: No medications were administered Disposition Summary: 10/24/22 14:42 Discharge Ordered Location: Home cp Problem: new cp Symptoms: have improved cp Condition: Stable cp Diagnosis - Acute tonsillitis, unspecified cp Followup: cp - With: Private Physician - When: 2 - 3 days - Reason: Worsening of condition Discharge Instructions: - Discharge Summary Sheet cp - Tonsillitis cp Forms: - Medication Reconciliation Form cp - Thank You Letter cp - Antibiotic Education cp - Prescription Opioid Use cp Prescriptions: - Ibuprofen 800 mg Oral Tablet - take 1 tablet by ORAL route every 8 hours As needed take with food; 30 tablet; cp Refills: 0, Product Selection Permitted - Clindamycin HCl 300 mg Oral Capsule - take 1 capsule by ORAL route every 6 hours for 10 days; 40 capsule; Refills: 0, cp Product Selection Permitted Signatures: Dispatcher [employer] EDMS Chano Mcgrath PA PA cp Angela Bernard, RN RN
[2022-10-24 15:28] VITALS: BP 139/82; TEMP 98.8; O2SAT 98
== END 2022-10-24 14:54 | disposition home or self-care (01) ==
LOC: ER 12:36
DX: J03.90 Acute tonsillitis, unspecified (principal)
CPT/HCPCS: 87070; 87081; 99281

== ENCOUNTER 2023-09-09 12:50 | Emergency (ER) | payer SELFPAY ==
--- NOTE | 2023-09-09 14:56 | ER ---
Nurse's Notes [facility] Name: Roman Hawkins Age: 22 yrs Sex: Male : 2000 Arrival Date: 09/09/2023 Time: 12:50 Bed 20 Private MD: Diagnosis: Acute pharyngitis, unspecified;Acute upper respiratory infection, unspecified;Fever, unspecified Presentation: 09/09 13:02 Chief complaint: Patient states: Fever, dizzy, fatigue, scratchy throat for 2 days. ll1 Coronavirus screen: Vaccine status: Patient reports being unvaccinated. Client denies travel out of the [place] in the last 14 days. fatigue, fever, headache, sore throat, Client presents with at least one sign or symptom that may indicate coronavirus-19. Standard/surgical mask placed on the client. Ebola Screen: Patient denies travel to an Ebola-affected area in the 21 days before illness onset. Initial Sepsis Screen: Does the patient meet any 2 criteria? No. Patient's initial sepsis screen is negative. Does the patient have a suspected source of infection? No. Patient's initial sepsis screen is negative. Risk Assessment: Do you want to hurt yourself or someone else? Patient reports no desire to harm self or others. Onset of symptoms was September 08, 2023. 13:02 Method Of Arrival: Ambulatory ll1 13:02 Acuity: LEE ANN 4 ll1 Historical: - Allergies: 13:02 No Known Allergies; ll1 - PMHx: 13:02 None; ll1 - PSHx: 13:02 None; ll1 - Immunization history:: Adult Immunizations up to date. - Social history:: Smoking status: Patient denies any tobacco usage or history of. Screenin:15 [facility] ED Fall Risk Assessment (Adult) Score/Fall Risk Level 0 - 2 = Low Risk nj1 Oriented to surroundings, Maintained a safe environment, Hourly rounding (assess needs \T\ fall precautionary measures) done. Abuse screen: Denies threats or abuse. Denies injuries from another. Nutritional screening: No deficits noted. Tuberculosis screening: No symptoms or risk factors identified. Assessment: 13:00 General: Appears in no apparent distress. comfortable, Behavior is calm, cooperative. nj1 Pain: Complains of pain in Throat Pain currently is 3 out of 10 on a pain scale. Neuro: No deficits noted. Cardiovascular: No deficits noted. Respiratory: Airway is patent Respiratory effort is even, unlabored. 14:00 Reassessment: Patient appears in no apparent distress at this time. Patient and/or iw family updated on plan of care and expected duration. Pain level reassessed. Patient is alert, oriented x 3, equal unlabored respirations, skin warm/dry/pink. 15:00 Reassessment: Patient appears in no apparent distress at this time. Patient and/or iw family updated on plan of care and expected duration. Pain level reassessed. Patient is alert, oriented x 3, equal unlabored respirations, skin warm/dry/pink. Vital Signs: 13:02 BP 152 / 102; Pulse 99; Resp 18; Temp 97.5; Pulse Ox 99% on R/A; Weight 86.18 kg; ll1 Height 5 ft. 4 in. ; Pain 0/10; 14:00 BP 138 / 84; Pulse 85; Resp 18; Pulse Ox 97% ; iw 15:00 BP 149 / 93; Pulse 87; Resp 17; Pulse Ox 100% ; iw 13:02 Body Mass Index 32.61 (86.18 kg, 162.56 cm) ll1 13:02 Pain Scale: Adult ll1 ED Course: 12:52 Patient arrived in ED. mr 12:53 Gordo Paiz MD is Attending Physician. kdr 12:54 Emilie Onofre, RN is Primary Nurse. nj1 12:58 Arm band placed on Patient placed in an exam room, on a stretcher. ll1 13:04 Triage completed. ll1 13:15 Patient has correct armband on for positive identification. Bed in low position. Call nj1 light in reach. Provided Education on: call light, fall precautions. 15:11 No provider procedures requiring assistance completed. Patient did not have IV access iw during this emergency room visit. Administered Medications: No medications were administered Medication: 13:15 VIS not applicable for this client. nj1 Outcome: 14:56 Discharge ordered by . kdr 15:11 Discharged to home ambulatory, iw 15:11 Condition: stable 15:11 Discharge instructions given to patient, Instructed on discharge instructions, follow up and referral plans. medication usage, Demonstrated understanding of instructions, follow-up care, medications, Prescriptions given X 1, 15:13 Patient left the ED. iw Signatures: Gordo Paiz MD MD [facility] Jacqueline Olivia, Reg Reg mr Maria C Haynes, RN RN iw Kyra Roberson RN RN ll1 Emilie Onofre RN RN nj1
--- NOTE | 2023-09-09 14:56 | EDPHYS ---
Physician Documentation [facility] Name: Roman Hawkins Age: 22 yrs Sex: Male : 2000 Arrival Date: 09/09/2023 Time: 12:50 Bed 20 Private MD: ED Physician Gordo Paiz HPI: 09/09 16:33 This 22 yrs old Male presents to ER via Ambulatory with complaints of Fever, kdr Dizziness. 16:33 Patient presents with 2 days of subjective fever, dizziness, fatigue and occasional kdr scratchy throat. Patient had similar symptoms before. Patient is nontoxic... Onset: The symptoms/episode began/occurred suddenly, gradually, 2 day(s) ago. Severity of symptoms: At their worst the symptoms were very mild mild in the emergency department the symptoms are unchanged. The patient has experienced similar episodes in the past, a few times. The patient has not recently seen a physician. Historical: - Allergies: 13:02 No Known Allergies; ll1 - PMHx: 13:02 None; ll1 - PSHx: 13:02 None; ll1 - Immunization history:: Adult Immunizations up to date. - Social history:: Smoking status: Patient denies any tobacco usage or history of. ROS: 16:33 Eyes: Negative for injury, pain, redness, and discharge, Neck: Negative for injury, kdr pain, and swelling, Cardiovascular: Negative for chest pain, palpitations, and edema, Respiratory: Negative for shortness of breath, cough, wheezing, and pleuritic chest pain, Abdomen/GI: Negative for abdominal pain, nausea, vomiting, diarrhea, and constipation, Back: Negative for injury and pain, : Negative for injury, bleeding, discharge, and swelling, MS/Extremity: Negative for injury and deformity, Skin: Negative for injury, rash, and discoloration, Neuro: Negative for headache, weakness, numbness, tingling, and seizure activity. Psych: Negative for depression, anxiety, suicide ideation, homicidal ideation, and hallucinations, Allergy/Immunology: Negative for hives, rash, and allergies, Endocrine: Negative for neck swelling, polydipsia, polyuria, polyphagia, and marked weight changes, Hematologic/Lymphatic: Negative for swollen nodes, abnormal bleeding, and unusual bruising, 16:33 Constitutional: Positive for body aches, fatigue, fever, Negative for chills, poor PO intake, weight loss, 16:33 Neuro: Positive for dizziness, weakness, Exam: 16:33 Constitutional: This is a well developed, well nourished patient who is awake, alert, kdr and in no acute distress. Head/Face: Normocephalic, atraumatic. Eyes: Pupils equal round and reactive to light, extra-ocular motions intact. Lids and lashes normal. Conjunctiva and sclera are non-icteric and not injected. Cornea within normal limits. Periorbital areas with no swelling, redness, or edema. ENT: Nares patent. No nasal discharge, no septal abnormalities noted. Tympanic membranes are normal and external auditory canals are clear. Oropharynx with no redness, swelling, or masses, exudates, or evidence of obstruction, uvula midline. Mucous membranes moist. Neck: Trachea midline, no thyromegaly or masses palpated, and no cervical lymphadenopathy. Supple, full range of motion without nuchal rigidity, or vertebral point tenderness. No Meningismus. Chest/axilla: Normal chest wall appearance and motion. Nontender with no deformity. No lesions are appreciated. Cardiovascular: Regular rate and rhythm with a normal S1 and S2. No gallops, murmurs, or rubs. Normal PMI, no JVD. No pulse deficits. Respiratory: Lungs have equal breath sounds bilaterally, clear to auscultation and percussion. No rales, rhonchi or wheezes noted. No increased work of breathing, no retractions or nasal flaring. Abdomen/GI: Soft, non-tender, with normal bowel sounds. No distension or tympany. No guarding or rebound. No evidence of tenderness throughout. Back: No spinal tenderness. No costovertebral tenderness. Full range of motion. Skin: Warm, dry with normal turgor. Normal color with no rashes, no lesions, and no evidence of cellulitis. MS/ Extremity: Pulses equal, no cyanosis. Neurovascular intact. Full, normal range of motion. Neuro: Awake and alert, GCS 15, oriented to person, place, time, and situation. Cranial nerves II-XII grossly intact. Motor strength 5/5 in all extremities. Sensory grossly intact. Cerebellar exam normal. Normal gait. Psych: Awake, alert, with orientation to person, place and time. Behavior, mood, and affect are within normal limits. Vital Signs: 13:02 BP 152 / 102; Pulse 99; Resp 18; Temp 97.5; Pulse Ox 99% on R/A; Weight 86.18 kg; ll1 Height 5 ft. 4 in. ; Pain 0/10; 14:00 BP 138 / 84; Pulse 85; Resp 18; Pulse Ox 97% ; iw 15:00 BP 149 / 93; Pulse 87; Resp 17; Pulse Ox 100% ; iw 13:02 Body Mass Index 32.61 (86.18 kg, 162.56 cm) ll1 13:02 Pain Scale: Adult ll1 MDM: 14:56 Patient medically screened. kdr 16:33 Data reviewed: vital signs, nurses notes, lab test result(s), radiologic studies. kdr 09/09 13:04 Order name: COVID-19 SARS RT PCR; Complete Time: 14:55 kdr 09/09 13:04 Order name: Flu; Complete Time: 13:42 kdr 09/09 13:04 Order name: Strep kdr 09/09 13:28 Order name: Throat Culture EDMS Administered Medications: No medications were administered Disposition Summary: 09/09/23 14:56 Discharge Ordered Notes: Location: Home kdr Problem: new kdr Symptoms: have improved kdr Condition: Stable kdr Diagnosis - Acute pharyngitis, unspecified kdr - Acute upper respiratory infection, unspecified kdr - Fever, unspecified kdr Followup: kdr - With: Private Physician - When: 2 - 3 days - Reason: If symptoms return, Further diagnostic work-up, Recheck today's complaints, Continuance of care, Re-evaluation by your physician Discharge Instructions: - Discharge Summary Sheet kdr - Pharyngitis kdr - Upper Respiratory Infection, Adult, [id number] kdr Forms: - Medication Reconciliation Form kdr - Thank You Letter kdr - Antibiotic Education kdr - Patient Portal Instructions kdr - Leadership Thank You Letter kdr Prescriptions: - Amoxicillin 500 mg Oral capsule - take 1 capsule ORAL route every 8 hours for 7 days; 21 tablet; Refills: 0, kdr Product Selection Permitted Signatures: Dispatcher [employer] EDMS Gordo Paiz MD MD kdr Kyra Roberson RN RN ll1
[2023-09-09 15:47] VITALS: TEMP 97.5
[2023-09-09 15:49] VITALS: BP 149/93; O2SAT 100
== END 2023-09-09 15:13 | disposition home or self-care (01) ==
LOC: ER 12:50
DX: J06.9 Acute upper respiratory infection, unspecified (principal); J02.9 Acute pharyngitis, unspecified; Z20.822 Contact with and (suspected) exposure to COVID-19
CPT/HCPCS: 87070; 87081; 87635; 87804

== ENCOUNTER 2024-04-11 18:40 | Emergency (ER) | payer SELFPAY ==
--- NOTE | 2024-04-11 19:59 | EDPHYS ---
Physician Documentation [facility] Name: Roman Hawkins Age: 23 yrs Sex: Male : 2000 Arrival Date: 04/11/2024 Time: 18:40 Bed 12 Private MD: ED Physician Alpesh Gamble HPI: 04/11 18:45 This 23 yrs old Male presents to ER via Unassigned with complaints of Hand jh7 Injury. 18:45 Patient complains of right hand pain after punching something 2 weeks ago. He still jh7 reports mild bruising near the fifth metacarpal, but he states that his work wants him to get checked out to ensure that he is okay to work. Only complains of mild pain, but has full range of motion. No other symptoms at this time.. Historical: - Allergies: 19:16 No Known Allergies; ha1 - Immunization history:: Adult Immunizations up to date. - Infectious Disease History:: Denies. - Social history:: Smoking status: Patient denies any tobacco usage or history of. ROS: 18:45 Constitutional: Per HPI jh7 Exam: 18:45 Constitutional: This is a well developed, well nourished patient who is awake, alert, jh7 and in no acute distress. Head/Face: Normocephalic, atraumatic. Eyes: Pupils equal round and reactive to light, extra-ocular motions intact. Lids and lashes normal. Conjunctiva and sclera are non-icteric and not injected. Cornea within normal limits. Periorbital areas with no swelling, redness, or edema. Neck: Trachea midline, no thyromegaly or masses palpated, and no cervical lymphadenopathy. Supple, full range of motion without nuchal rigidity, or vertebral point tenderness. No Meningismus. Cardiovascular: Regular rate and rhythm with a normal S1 and S2. No gallops, murmurs, or rubs. Normal PMI, no JVD. No pulse deficits. Respiratory: Lungs have equal breath sounds bilaterally, clear to auscultation and percussion. No rales, rhonchi or wheezes noted. No increased work of breathing, no retractions or nasal flaring. Abdomen/GI: Soft, non-tender, with normal bowel sounds. No distension or tympany. No guarding or rebound. No evidence of tenderness throughout. Back: No spinal tenderness. No costovertebral tenderness. Full range of motion. Skin: Warm, dry with normal turgor. Normal color with no rashes, no lesions, and no evidence of cellulitis. Neuro: Awake and alert, GCS 15, oriented to person, place, time, and situation. Motor strength 5/5 in all extremities. Sensory grossly intact. Normal gait. 18:45 Musculoskeletal/extremity: Extremities: noted in the right hand: contusion, ROM: full active range of motion, Circulation is intact in all extremities. Sensation intact. Vital Signs: 19:00 BP 143 / 97; Pulse 77; Resp 16 S; Temp 98.1; Pulse Ox 100% on R/A; Weight 90.72 kg; ha1 Height 5 ft. 4 in. ; 20:00 BP 139 / 81; Pulse 72; Resp 18 S; Temp 97.9(O); Pulse Ox 100% on R/A; ha1 19:00 Body Mass Index 34.33 (90.72 kg, 162.56 cm) [facility] MDM: 18:45 Patient medically screened. [facility] 19:47 Differential diagnosis: dislocation, closed fracture, contusion, sprain. Data reviewed: [facility] vital signs, nurses notes, radiologic studies, plain films. Independent interpretation of the following test(s) in the Emergency Department X-Ray: My interpretation is 5th metacarpal fracture. Counseling: I had a detailed discussion with the patient and/or guardian regarding the historical points, exam findings, and any diagnostic results supporting the discharge/admit diagnosis, the need for outpatient follow up, a orthopedic surgeon, to return to the emergency department if symptoms worsen or persist or if there are any questions or concerns that arise at home. 19:59 ED course: The fracture occurred 2 weeks ago so the patient was only placed in a Velcro [facility] splint. Informed him that we could not give him clearance for work and that he needed to follow-up with an orthopedist. He was able to appropriately demonstrate full range of motion, but Ortho follow-up was still advised.. 04/11 18:53 Order name: XRAY Hand RIGHT 3 View [facility] 04/11 19:46 Order name: Ulnar Gutter splint: velcro; Complete Time: 19:47 [facility] Administered Medications: No medications were administered Disposition: 20:02 I was immediately available on-site in the Emergency Department for consultation in the ms3 care of the patient. Disposition Summary: 04/11/24 19:58 Discharge Ordered Notes: Location: Home [facility] Problem: new [facility] Symptoms: have improved [facility] Condition: Stable [facility] Diagnosis - Displaced fracture of base of fifth metacarpal bone, right hand [facility] Followup: [facility] - With: Calvin Silverio MD - When: 5 - 6 days - Reason: Further diagnostic work-up Discharge Instructions: - Discharge Summary Sheet [facility] - Cast or Splint Care, Adult [facility] - Metacarpal Fracture [facility] Forms: - Medication Reconciliation Form [facility] - Patient Portal Instructions [facility] - Leadership Thank You Letter [facility] - Work release form ha1 Signatures: Dispatcher [employer] EDMS Alpesh Gamble DO DO ms3 Kathleen Hernandez, MUD ANALYSIS WELL LOGGING CAPTAIN MUD ANALYSIS WELL LOGGING CAPTAIN 7 Joanne Hinojosa, RN RN ha1
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
[2024-04-11 20:26] VITALS: BP 139/81; TEMP 97.9; O2SAT 100
--- NOTE | 2024-04-11 20:27 | RAD REPORT ---
EXAM DESCRIPTION: RAD - Hand Right 3 View - 04/11/2024 8:10 pm CLINICAL HISTORY: SWELLING COMPARISON: No comparisons FINDINGS/IMPRESSION: Comminuted, displaced fracture at the base of the fifth proximal metacarpal wit h intra-articular extension and significant disruption of the articular surface. No other fractures i dentified.
== END 2024-04-11 20:10 | disposition home or self-care (01) ==
LOC: ER 18:40
PROC: 2W3EX1Z Immobilization of Right Hand using Splint (ICD-10-PCS; principal; 2024-04-11)
DX: S62.316A Displaced fracture of base of fifth metacarpal bone, right hand, initial encounter for closed fracture (principal)
CPT/HCPCS: 99283